=== PATIENT | female | born 1950 | race Caucasian/White ===

== ENCOUNTER 2022-10-29 14:17 | Emergency (ER) | payer MEDICARE, SELFPAY ==
[2022-10-29 14:26] VITALS: BP 149/60; PULSE 70; RESP 16; TEMP 36.2; O2SAT 99
--- NOTE | 2022-10-29 14:47 | ED.EAR ---
HPI - Ear Problem General Chief complaint: Ear Stated complaint: cough, rt ear pain Time Seen by Provider: 10/29/22 14:48 Source: patient, RN notes reviewed and old records reviewed Mode of arrival: ambulatory Limitations: no limitations History of Present Illness HPI Narrative: 72-year-old female who presents to [facility] with complaints of right ear pain and persistent cough. Patient reports that she had a cold about 2 weeks and she has continued to have this cough for the past 10 days with no improvement despite use of Robitussin, Delsym,Mucinex DM. Patient reports that right ear feels clogged for 5 days and has discomfort also today. Patient states that she does have some sinus drainage which is clear, denies sore throat or recent fever, denies any body aches or any shortness of breath does state some frontal headache. MD Complaint: ear pain (right) and other (persistent cough) Location: right ear Discharge from ear: Reports no Treatment prior to arrival: other (Mucinex, cough meds) Related Data Allergies Allergy/AdvReac Type Severity Reaction Status Date / Time amoxicillin Allergy Unknown Rash Verified 10/29/22 14:45 Penicillins Allergy Unknown Rash Verified 10/29/22 14:45 Review of Systems Review of Systems: CONSTITUTIONAL: Denies malaise, chills, sweats, or fever. EYES: Denies visual changes, redness, or discharge. ENT: Reports rhinorrhea, congestion, sinus pain, right otalgia no sore throat. CARDIOVASCULAR: Denies chest pain, palpitations, or edema. RESPIRATORY: Reports persistent hacking cough.? Denies dyspnea. GASTROINTESTINAL: Denies abdominal pain, nausea, vomiting, diarrhea SKIN: Denies rash or itching. MUSCULOSKELETAL: Denies myalgia. NEUROLOGIC: positive for frontal headache. All systems reviewed & are unremarkable except as noted in HPI and below PMFSH Past Medical History Medical History (Updated 10/30/22 @ 09:38 by Chen Lujan NP) Biliary colic Surgical History Surgical History (Updated 10/29/22 @ 15:01 by Chen Lujan NP) H/O: hysterectomy Family History Family History (Updated 04/22/18 @ 15:15 by DOCTOR UNKNOWN) Other Cerebrovascular accident Diabetes mellitus Social History Social History (Updated 10/30/22 @ 09:39 by Chen Lujan NP) Smoking status: Never smoker Alcohol intake: current Substance use type: does not use Gender identity (if verbalized by the patient): Female Comments At time of signature, agree with nursing past medical, surgical, social and family history. There is no relevant family history pertinent to the presenting complaint Exam Narrative: GENERAL: Well-appearing, well-nourished, and in no acute distress. HEAD: Normocephalic EYES: PERRLA, conjunctivae clear ENT: Nares clear, turbinates edematous and erythematous, clear discharge.frontal headache discomfort, Mucous membranes moist. TM pearly anderson with dull light reflex bilaterally; no tragal tenderness. Oropharynx erythematous without lesions. Tonsils not enlarged and without exudate, no drooling, no hoarseness, no trismus, uvula midline.post nasal drainage NECK: Supple. No lymphadenopathy CHEST: Clear to auscultation, breath sounds equal. No wheezing, rhonchi, rales, or stridor. No respiratory distress, speaks in full sentences persistent hacking cough, SAO2 99% on room air. HEART: Regular rate and rhythm. No murmur heard. SKIN: Warm, dry, no rash. NEURO: Alert and oriented x3. PSYCH: Normal mood and affect Course Course Emergency Course: Patient is aware of diagnosis, understands and agrees to treatment plan.? Anticipatory guidance given.? Patient agrees to follow-up as directed and is aware of reasons to seek care at the emergency department. Portions of this record may have been created with voice recognition software Level of Care: Express Care Visit Vital Signs Vital signs: Vital Signs Temperature 36.2 C L 10/29/22 14:26 Pulse Ra
== END 2022-10-29 15:17 | disposition home or self-care (01) ==
PROVIDERS: Emergency Provider Registered Nurse; PCP Internal Medicine
DX: J32.9 Chronic sinusitis, unspecified (principal); H92.01 Otalgia, right ear
CPT/HCPCS: 99203; G0463

== ENCOUNTER 2022-11-27 08:20 | Outpatient (CLI) | payer MEDICARE, SELFPAY ==
[2022-11-27 20:00] LABS: Alanine Aminotransferase 22 U/L (6-35); Albumin Level 4.1 g/dL (3.5-5.1); Alkaline Phosphatase 69 U/L (38-126); Anion Gap 7 mmol/L (8-16); Aspartate Amino Transferase 30 U/L (14-36); Bilirubin,Total 0.6 mg/dL (0.2-1.3); Blood Urea Nitrogen 15 mg/dL (7-17); Calcium 8.8 mg/dL (8.4-10.2); Carbon Dioxide 30 mmol/L (22-30); Chloride 106 mmol/L (98-107); Cholesterol 240 mg/dL (0-200); Estimated Glomerular Filt Rate > 60; Glucose 80 mg/dL (65-110); HDL Direct 44 mg/dL; Potassium 4.2 mmol/L (3.4-5.0); Sodium 143 mmol/L (137-145); Triglycerides 154 mg/dL (<150)
[2022-11-27 20:12] LABS: LDL Cholesterol Direct 135 mg/dL
[2022-11-27 20:37] LABS: Basophils Absolute Auto 0.1 K/mm3 (0.0-0.1); Basophils Percent Auto 1.1 % (0.2-1.2); Eosinophils Absolute Auto 0.2 K/mm3 (0-0.3); Hematocrit 40.4 % (37.0-47.0); Hemoglobin 12.7 g/dL (12.0-15.0); Immature Granulocyte Absolute 0.04 K/mm3 (0.00-0.031); Immature Granulocyte Percent A 0.8 % (0-0.5); Lymphocytes Absolute Auto 1.59 K/mm3 (0.9-3.2); Lymphocytes Percent Auto 33.4 % (18.3-44.2); Mean Corpuscular HGB Conc 31.4 g/dl (32-36); Mean Corpuscular Hemoglobin 28.1 pg (26-34); Mean Corpuscular Volume 89.4 fl (80-100); Mean Platelet Volume 9.2 fl (7.4-10.4); Monocytes Absolute Auto 0.5 K/mm3 (0.1-0.6); Monocytes Percent Auto 10.5 % (2.6-8.5); Neutrophils Absolute Auto 2.4 K/mm3 (1.3-6.7); Neutrophils Percent Auto 50.2 % (45.5-73.1); Platelet Count Result 276 k/mm3 (150-375); Red Blood Count 4.52 M/mm3 (4.2-5.4); Red Cell Distribution Width 13.9 % (11.5-14.5); White Blood Count 4.8 K/mm3 (4.5-10.0)
== END 2022-11-27 08:21 | disposition home or self-care (01) ==
LOC: ANHGOSHLAB 08:22
PROVIDERS: PCP Family Medicine; Visit Provider Nurse Practitioner Family
DX: E78.5 Hyperlipidemia, unspecified (principal)
CPT/HCPCS: 36415; 80053; 80061; 85025

== ENCOUNTER 2023-01-13 15:35 | Outpatient (CLI) | payer MEDICARE, SELFPAY ==
--- NOTE | ~2023-01-13 | MM_ITS ---
EXAMINATION: MM screening maureen BI w julio HISTORY: Screening mammogram TECHNIQUE: Craniocaudal and mediolateral oblique 3-D tomosynthesis images were obtained and synthetic 2-D images were generated. CAD analysis was submitted and interpreted. COMPARISON: No prior mammogram is available for comparison at this institution. BREAST PARENCHYMAL COMPOSITION: There are scattered areas of fibroglandular density. FINDINGS: RIGHT BREAST: There is a possible mass in the upper outer quadrant of the breast. LEFT BREAST: There is a low-density mass in the anterior third upper breast best appreciated on the c raniocaudal view. IMPRESSION: 1. Bilateral breast findings as above which may represent the patient's baseline however no compariso n is currently available. 2. Comparison with prior mammograms is necessary. BI-RADS Category 0: Incomplete: Needs comparison with prior mammograms. Reviewed, dictated and finalized at location A. IMPRESSION: 1. Bilateral breast findings as above which may represent the patient's baselin e however no comparison is currently available. 2. Comparison with prior mammograms is necessary. BI-RADS Category 0: Incomplete: Needs comparison with prior mammograms.
== END 2023-01-13 15:36 | disposition home or self-care (01) ==
PROVIDERS: PCP Family Medicine; Visit Provider Nurse Practitioner Family
DX: Z12.31 Encounter for screening mammogram for malignant neoplasm of breast (principal)
CPT/HCPCS: 77063; 77067

== ENCOUNTER 2024-02-10 09:15 | Outpatient (CLI) | payer MEDICARE, SELFPAY ==
[2024-02-10 09:53] LABS: Basophils Absolute Auto 0.1 K/mm3 (0.0-0.1); Basophils Percent Auto 1.3 % (0.2-1.2); Eosinophils Absolute Auto 0.3 K/mm3 (0-0.3); Eosinophils Percent Auto 4.5 % (0-4.4); Hemoglobin 13.3 g/dL (12.0-15.0); Immature Granulocyte Absolute 0.02 K/mm3 (0.00-0.031); Immature Granulocyte Percent A 0.3 % (0-0.5); Lymphocytes Absolute Auto 1.74 K/mm3 (0.9-3.2); Lymphocytes Percent Auto 29.1 % (18.3-44.2); Mean Corpuscular HGB Conc 31.7 g/dl (32-36); Mean Corpuscular Hemoglobin 27.8 pg (26-34); Mean Corpuscular Volume 87.9 fl (80-100); Mean Platelet Volume 9.1 fl (7.4-10.4); Monocytes Absolute Auto 0.6 K/mm3 (0.1-0.6); Monocytes Percent Auto 9.7 % (2.6-8.5); Neutrophils Absolute Auto 3.3 K/mm3 (1.3-6.7); Neutrophils Percent Auto 55.1 % (45.5-73.1); Platelet Count Result 282 k/mm3 (150-375); Red Blood Count 4.78 M/mm3 (4.2-5.4); Red Cell Distribution Width 13.7 % (11.5-14.5)
[2024-02-10 10:04] LABS: Alanine Aminotransferase 19 U/L (6-35); Albumin Level 4.2 g/dL (3.5-5.1); Alkaline Phosphatase 67 U/L (38-126); Anion Gap 4 mmol/L (4-12); Aspartate Amino Transferase 28 U/L (14-36); Bilirubin,Total 0.7 mg/dL (0.2-1.3); Blood Urea Nitrogen 14 mg/dL (7-17); Calcium 9.3 mg/dL (8.4-10.2); Carbon Dioxide 30 mmol/L (22-30); Chloride 107 mmol/L (98-107); Estimated Glomerular Filt Rate > 60; Glucose 103 mg/dL (65-110); Potassium 4.3 mmol/L (3.4-5.0); Sodium 141 mmol/L (137-145)
== END 2024-02-10 09:16 | disposition home or self-care (01) ==
LOC: ANHLAB 09:19
PROVIDERS: PCP Family Medicine; Visit Provider Student in an Organized Health Care Education/Training Program
DX: R03.0 Elevated blood-pressure reading, without diagnosis of hypertension (principal)
CPT/HCPCS: 36415; 80053; 85025

== ENCOUNTER 2025-04-21 07:29 | Outpatient (CLI) | payer MEDICARE, SELFPAY ==
--- OUTSIDE RECORDS SUMMARY | 2025-04-21 07:32 | XMS_ITS | Clinical Summary ---
Author Organization [facility] Address [address] [place] [address] Phone Care Team Providers Care Rock Room Worker Name Role Phone Kelley Warner MD Primary Care Provider Anna ilable Allergies Active Allergy Reactions Criticality Noted Date Comments Ampicillin Rash Low 04/01/2010 Medications zolpidem (AMBIEN) 5 mg Oral tablet Take 5 mg by mouth nightly as needed. Active Immunizations Immunization Administration Dates Next Due INFLUENZA VACCINE QUADRIVALE NT 3 YR UP PF IM 07/07/2016,06/12/2015 Influenza Seasonal Unspecifi ed Formulation IM 06/18/2018,06/09/2017,06/23/2013,2011 Influenza Vaccine Quad Split 3+ Yrs Pf Im 06/07/2014 Family History Medical History Relation Name Comments Breast Cancer Neg Hx Cancer Neg Hx Ovarian Cancer Neg Hx Social History Tobacco Use Types Packs/Day Years Used Date Smoking Tobacco: Never Assessed Alcohol Use Standard Drinks/Week Comments Yes 0 (1 standard drink = 0.6 oz pur e alcohol) Comments Unknown Sex and Gender Information Value Date Recorded Sex Assigned at Not on file Legal Sex 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 Gender Identity Not on file Sexual Orientation Not on file Last Filed Vital Signs Vital Sign Reading Time Taken Comments Blood Pressure 91/64 04/01/2010 10:30 AM CDT Pulse 64 04/01/2010 10:30 AM CDT Temperature 36.4 C (97.6 F) 04/01/2010 10:15 AM CDT Respiratory Rate 16 04/01/2010 10:30 AM CDT Oxygen Saturation 100% 04/01/2010 10:30 AM CDT Inhaled Oxygen Concentration - - Weight 83.9 kg (185 lb) 04/01/2010 8:24 AM CDT Height 162.6 cm (5' 4) 04/01/2010 8:24 AM CDT Body Mass Index 31.76 04/01/2010 8:24 AM CDT Plan of Treatment Health Maintenance Due Date Last Done Comments DTAP/TDAP/TD VACCINES (1 - Tdap) 1970 FIT-DNA Q 3 years 1996 FIT/FOBT Q 1 year 1996 Flex Sig/CT Colonography Q 5 years 1996 PNEUMOCOCCAL VACCINE 50+ YEA RS (1 of 1 - PCV) 2001 ZOSTER VACCINE (1 of 2) 2001 BREAST CANCER SCREENING 10/26/2010 10/26/2009 OSTEOPOROSIS SCREENING 2016 COLORECTAL SCREENING 04/01/2020 04/01/2010 Colorectal Cancer Screening 04/01/2020 INFLUENZA VACCINE (#1) 2025 8, 06/09/2017, 07/07/2016, Additional history exists RSV VACCINE (60+ or ) (1 - 1-dose 75+ series) 2026 Procedures Procedure Name Priority Date/Time Associated Diagnosis Comments MAMMO SCREEN BILAT W OR WO CAD Routine 10/26/2009 10:14 AM SHREDDED FILLER CIGAR MAKER MACHINE Other Screening Mammogram from Last 3 Months or Most Recently Relevant to Health Maintenance Results * MAMMO DIGITAL SCREEN BILAT (10/26/2009 10:14 AM SHREDDED FILLER CIGAR MAKER MACHINE) Anatomical Region Laterality Modality Breast Bilateral Mammography Narrative 10/26/2009 11:10 AM SHREDDED FILLER CIGAR MAKER MACHINE DIGITAL SCREENING MAMMOGRAM WITH COMPUTER-ASSISTED DIAGNOSIS HISTORY: Annual screening study. FINDINGS: The breasts were imaged with digital mammographic technique. There are scattered fibroglandular densities. No significant mass, malignant calcification or architectural distortion is noted. The CAD system does not highlight any suspicious areas. SUMMARY: No mammographic evidence of malignancy. There has been no significant change from prior study of 12/05/04. RECOMMENDATIONS: Bilateral yearly screening mammogram is recommended. BIRADS 1 - Negative Procedure Note Kavitha Proctor MD - 10/29/2009 DIGITAL SCREENING MAMMOGRAM WITH COMPUTER-ASSISTED DIAGNOSIS HISTORY: Annual screening study. FINDINGS: The breasts were imaged with digital mammographic technique.There are scattered fibroglandular densities. No significant mass,malignant calcification or architectural distortion is noted. The CAD system does not highlight any suspicious areas. SUMMARY: No mammographic evidence of malignancy. There has been no significant change from prior study of 12/05/04. RECOMMENDATIONS: Bilateral yearly screening mammogram is recommended. BIRADS 1 - Negative us Kelley Warner MD MAMMO ORDERABLES Final Resul t from Last 3 Months or Most Recently Relevant to Health Maintenance Advance Directives For more information, please contact: [phone] * Full Code (Latest Code Status on File) Date Activated Date Inactivated Comments 04/01/2010 8:29 AM 04/02/2010 2:32 AM Care Teams Rock Room Worker Relationship Specialty Start Date End Date Kelley Warner MD PCP - General 10/24/09
--- OUTSIDE RECORDS SUMMARY | 2025-04-21 07:32 | XMS_ITS | Encounter Summary ---
Author Organization [facility] Address 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
--- OUTSIDE RECORDS SUMMARY | 2025-04-21 07:32 | XMS_ITS ---
Author Organization Unknown ENCOUNTERS Encounter Performer Location Date Diagnosis Diagnosis Status Outpatient [place] [address] [facility] [address] [place] [address] [phone] HEATHER Outpatient [facility] [address] [place] [address] [phone] HEATHER Outpatient [place] [address] [place] [address] [phone] HEATHER *Note: Encounters from your own facility or health system may be excluded. Allergies, Adverse Reactions, Alerts Allergen Type Severity Identification Date amoxicillin drug allergy 20221111 Penicillins drug allergy 3 20221111 Medications Name Date Quantity Days Supplied [facility] Number
--- OUTSIDE RECORDS SUMMARY | 2025-04-21 07:32 | XMS_ITS | Encounter Summary ---
Author Organization [facility] Address [address] [place] [address] Care Team Providers Care Client Relationship Consultant Name Role Phone Kelley Warner MD Primary Care Provider Unava ilable Encounter Details Date Type Department Care Team (Latest Contact Info) Description 04/25/2008 Outpatient Historical HIS [facility] [place] [address] 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 Gender Identity Not on file Sexual Orientation Not on file documented as of this encounter Plan of Treatment Not on file documented as of this encounter Procedures Procedure Name Priority Date/Time Associated Diagnosis Comments XR CHEST PA AND LATERAL 2 VW Routine 04/25/2008 2:55 PM CDT documented in this encounter Results * XR CHEST PA AND LATERAL (04/25/2008 2:55 PM CDT) Anatomical Region Laterality Modality Chest Other 04/25/2008 2:55 PM CDT Narrative 04/27/2008 8:14 AM CDT [address] [address] Admit Date: 04/25/2008 DENNIS OSORIO Adama Sex: F Admit Prov: ANGELICA AMEZCUA Date: 1950 Primary Care Prov: SAM HESTER CMRN: [id number] Room: [place] N: [id number] IMAGING SERVICES Ordering Prov: N/A Accession Number: [id number] Interpretation CHEST 2 VIEWS 04/25/2008 History: Positive PPD. Examination of the chest reveals some calcified hilar lymph nodes on the left. Peripheral lung norman are clear and there is no infiltrate, effusion or mass. Heart size is normal. There is no mediastinal widening. Bony structures appear intact. Impression: No active disease. . Dictated by: NIKKO HUNTER 04/25/2008 16:21 Electronically signed by: NIKKO HUNTER 04/27/2008 08:12 Transcribed: 04/25/2008 17:09 AMK Procedure Note Nikko Hunter MD - 04/27/2008 [facility] [address], [place] [address] Admit Date: 04/25/2008 DENNIS OSORIO Sex: F Admit Prov: LEVONBRITTNEY ANGELICA Date:1950 Primary Care [id number] Room: [facility] N: [id number] IMAGING SERVICES Ordering Prov: N/A Interpretation CHEST 2 VIEWS 04/25/2008 History: Positive PPD. Examination of the chest reveals some calcified hilar lymph nodes onthe left. Peripheral lung norman are clear and there is no infiltrate,effusion or mass. Heart size is normal. There is no mediastinal widening.Bony structures appear intact. Impression: No active disease. . Dictated by: NIKKO HUNTER 04/25/2008 16:21 Electronically signed by: NIKKO HUNTER 04/27/2008 08:12 Transcribed: 04/25/2008 17:09 AMK Angelica Amezcua MD DIAGNOSTIC IMAGING ORDERABLES Fi nal Result documented in this encounter Visit Diagnoses Diagnosis Tuberculin test reaction Nonspecific reaction to tuberculin skin test without active tuberculosis documented in this encounter Care Teams Client Relationship Consultant Relationship Specialty Start Date End Date Kelley Warner MD PCP - General 10/24/09 documented as of this encounter
--- OUTSIDE RECORDS SUMMARY | 2025-04-21 07:32 | XMS_ITS | Encounter Summary ---
Author Organization [facility] Address [address] [facility] Attn: Epic Prelude ADT JOSE M KIM [address] Care Team Providers Care Manager [employer] Name Role Phone Kelley Warner MD Primary Care Provider Anna harper Encounter Details Date Type Department Care Team (Late st Contact Info) Description 12/24/1998 Outpatient Historical Social History Tobacco Use Types Packs/Day Years Used Date Smoking Tobacco: Never Assessed Comments Unknown Sex and Gender Information Value Date Recorded Sex Assigned at Not on file Legal Sex Female 4:27 AM CLAY BURNER Gender Identity Not on file Sexual Orientation Not on file documented as of this encounter Plan of Treatment Not on file documented as of this encounter Visit Diagnoses Not on filedocumented in this encounter Care Teams Manager Mutual Fund Relationship Specialty Start Date End Date Kelley Warner MD PCP - General 10/24/09 documented as of this encounter
--- OUTSIDE RECORDS SUMMARY | 2025-04-21 07:32 | XMS_ITS | Encounter Summary ---
Author Organization [facility] Address [address] [place] [address] Care Team Providers Care Steel Tester Name Role Phone Kelley Warner MD Primary Care Provider Unava ilable Encounter Details Date Type Department Care Team (Late st Contact Info) Description 06/27/2004 Outpatient Historical [facility] 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
[2025-04-21 08:02] LABS: Hematocrit 41.0 % (37.0-47.0); Hemoglobin 12.9 g/dL (12.0-15.0); Immature Granulocyte Percent A 0.2 % (0-0.5); Lymphocytes Absolute Auto 2.12 K/mm3 (0.9-3.2); Mean Corpuscular HGB Conc 31.5 g/dl (32-36); Mean Corpuscular Hemoglobin 27.7 pg (26-34); Mean Corpuscular Volume 88.2 fl (80-100); Nucleated Red Blood Cells Absolute Auto 0.000 K/mm3 (0.0-0.012); Nucleated Red Blood Cells Perc 0.0 % (0.0-0.2); Platelet Count Result 288 k/mm3 (150-375); Red Blood Count 4.65 M/mm3 (4.2-5.4); White Blood Count 5.9 K/mm3 (4.5-10.0)
[2025-04-21 08:31] LABS: Alanine Aminotransferase 22 U/L (6-35); Albumin Level 4.2 g/dL (3.5-5.1); Alkaline Phosphatase 70 U/L (38-126); Anion Gap 7 mmol/L (4-12); Aspartate Amino Transferase 35 U/L (14-36); Bilirubin,Total 0.7 mg/dL (0.2-1.3); Blood Urea Nitrogen 11 mg/dL (7-17); Calcium 9.2 mg/dL (8.4-10.2); Carbon Dioxide 29 mmol/L (22-30); Chloride 105 mmol/L (98-107); Cholesterol 251 mg/dL (0-200); Estimated Glomerular Filt Rate > 60; Glucose 101 mg/dL (65-110); HDL Direct 54 mg/dL; Potassium 4.4 mmol/L (3.4-5.0); Sodium 141 mmol/L (137-145); Total Protein 7.4 g/dL (6.3-8.2); Triglycerides 119 mg/dL (<150)
[2025-04-21 12:56] LABS: Hemoglobin A1C 5.6 % (<5.7)
== END 2025-04-21 07:30 | disposition home or self-care (01) ==
PROVIDERS: PCP Family Medicine; Visit Provider Nurse Practitioner Family
DX: E78.5 Hyperlipidemia, unspecified (principal); R73.01 Impaired fasting glucose; E55.9 Vitamin D deficiency, unspecified
CPT/HCPCS: 36415; 80053; 80061; 82306; 83036; 85025